=== PATIENT | female | born 1990 | race Two or more races ===

== ENCOUNTER 2023-06-17 00:02 | Inpatient (IN) | payer BC, OTHER ==
[2023-06-17] VITALS (25 sets, daily range): BP systolic 110–163; BP diastolic 62–104; PULSE 69–92; RESP 11–26; TEMP 98.2–98.7; O2SAT 94–99
[~2023-06-17] VITALS: Ht 170.2 cm; Wt 98.1 kg
[2023-06-17] MEDS ORDERED: LABETALOL HCL 5 MG/ML 4ML SYRINGE IV ONE (00:30)
[2023-06-17] MEDS ORDERED: ONDANSETRON HCL 4 MG/2 ML VIAL IV ONE ×2 (00:30→03:45)
[2023-06-17] MEDS ORDERED: MORPHINE SULFATE 4 MG/ML SYR/VIAL IV ONE ×2 (00:45→02:15)
[2023-06-17 00:54] LABS: Basophils # (auto) 0 10 ^3/uL (0-0.2); Basophils % (auto) 0.1 % (0.0-2.0); Eosinophils # (auto) 0 10 ^3/uL (0-0.8); Eosinophils % (auto) 0.2 % (0.0-7.0); Hematocrit 33.3 % (36.0-46.0); Hemoglobin 11.5 g/dL (12.2-16.2); Lymphocytes # (auto) 1.2 10 ^3/uL (0.4-5.4); Lymphocytes % (auto) 8.6 % (10.0-50.0); Mean Corpuscular Hemoglobin 31.2 pg (28.0-32.0); Mean Corpuscular Hgb Conc. 34.5 g/dL (32.0-36.0); Mean Corpuscular Volume 90.3 fL (80.0-100.0); Monocytes # (auto) 0.6 10 ^3/uL (0-1.3); Monocytes % (auto) 4.3 % (0.0-12.0); Neutrophils # (auto) 12.2 10 ^3/uL (1.6-8.6); Neutrophils % (auto) 86.8 % (37.0-80.0); Red Blood Cells 3.69 10^6/uL (4.0-5.20)
[2023-06-17] MEDS: MAGNESIUM SULFATE 1GM/100ML 100 ML IV SCH ×4 (00:58→04:45)
[2023-06-17] MEDS ORDERED: ACETAMINOPHEN IV 1000 MG/100ML (10MG/ML) IV STA (02:09)
[2023-06-17 02:16] LABS: Alanine Aminotransferase 22 U/L (7-40); Albumin 3.5 g/dL (3.2-4.8); Alkaline Phosphatase 129 U/L (46-116); Anion Gap 7 (5-15); Aspartate Aminotransferase 19 U/L (13-40); BUN/Creatinine Ratio 5.5 (10.0-20.0); Bilirubin, Total 0.4 mg/dL (0.2-1.0); Blood Urea Nitrogen 5 mg/dL (9-23); Calcium 8.8 mg/dL (8.7-10.4); Carbon Dioxide 24 mmol/L (20-30); Chloride 107 mmol/L (98-107); Glucose 115 mg/dL (74-106); Lipase 42 U/L (12-53); Potassium 4.5 mmol/L (3.5-5.1); Sodium 138 mmol/L (136-145); Total Protein 5.9 g/dL (5.7-8.2)
[2023-06-17] MEDS ORDERED: ACETAMINOPHEN IV 100 ML IV ONE (02:23)
[2023-06-17] MEDS ORDERED: MAGNESIUM SULFATE 1GM/100ML 100 ML IV SCH (04:30)
[2023-06-17] MEDS ORDERED: LORazepam 2MG/ML-1ML VIAL IV ONE (05:00)
[2023-06-17 05:35] LABS: Urine Amorphous Crystal FEW /hpf (None Seen); Urine Bacteria NONE SEEN /hpf (None Seen); Urine Blood 3+ /uL (Negative); Urine Clarity HAZY (Clear); Urine Color Colorless (Yellow); Urine Protein, UAD Negative (Negative); Urine Specific Gravity 1.009 (1.001-1.035); Urine Urobilinogen Normal (Negative); Urine WBC 4 /hpf (0 - 5)
[2023-06-17] MEDS ORDERED: HYDROmorphone HCL 2 MG/ML VL/or syr IV ONE (06:15)
[2023-06-17 07:20] LABS: Creatinine, Urine 19.97 mg/dL (30.0-125.0)
[2023-06-17 08:05] LABS: Protein, Urine 10.7 mg/dL (0.0-11.9)
[2023-06-17] MEDS ORDERED: DOCUSATE SOD 100 MG CAP PO PRN (09:15)
[2023-06-17] MEDS ORDERED: LORazepam 2MG/ML-1ML VIAL IV PRN (09:15)
[2023-06-17] MEDS ORDERED: ONDANSETRON HCL 4 MG/2 ML VIAL IV PRN (09:15)
[2023-06-17] MEDS ORDERED: HYDROmorphone HCL 2 MG/ML VL/or syr IV PRN (09:15)
[2023-06-17] MEDS: MAGNESIUM SULFATE 40MG/ML 1,000 ML IV SCH (09:31)
[2023-06-17] MEDS ORDERED: LABETALOL HCL 200 MG TAB PO ONE ×2 (10:00→10:30)
[2023-06-17] MEDS: SODIUM CHLORIDE 0.9% 1,000 ML IV SCH ×2 (10:29→15:58)
[2023-06-17] MEDS: levoFLOXacin 500MG 100 ML IV SCH (10:30)
[2023-06-17] MEDS: LABETALOL HCL 200 MG TAB PO SCH ×2 (14:28→21:39)
[2023-06-17] MEDS ORDERED: LABE200T7 PO (15:02)
[2023-06-17 18:41] LABS: INR 0.99 (0.9-1.15); Prothrombin Time 10.4 sec (9.3-11.8)
[2023-06-17] MEDS ORDERED: hydrALAZINE HCL 20 MG/ML VL IV PRN (18:45)
[2023-06-18] VITALS (30 sets, daily range): BP systolic 108–162; BP diastolic 66–104; PULSE 71–94; RESP 10–27; TEMP 97.9–98.7; O2SAT 92–97
[2023-06-18] MEDS: MAGNESIUM SULFATE 40MG/ML 1,000 ML IV SCH ×2 (01:31→17:33)
[2023-06-18] MEDS: SODIUM CHLORIDE 0.9% 1,000 ML IV SCH ×2 (01:55→08:31)
[2023-06-18 05:19] LABS: Basophils # (auto) 0 10 ^3/uL (0-0.2); Basophils % (auto) 0.2 % (0.0-2.0); Eosinophils # (auto) 0 10 ^3/uL (0-0.8); Eosinophils % (auto) 0.4 % (0.0-7.0); Hemoglobin 12.1 g/dL (12.2-16.2); Lymphocytes # (auto) 1.7 10 ^3/uL (0.4-5.4); Lymphocytes % (auto) 18.5 % (10.0-50.0); Mean Corpuscular Hgb Conc. 34.7 g/dL (32.0-36.0); Mean Corpuscular Volume 89.5 fL (80.0-100.0); Monocytes # (auto) 0.5 10 ^3/uL (0-1.3); Monocytes % (auto) 5.2 % (0.0-12.0); Neutrophils # (auto) 6.8 10 ^3/uL (1.6-8.6); Neutrophils % (auto) 75.7 % (37.0-80.0); Red Blood Cells 3.91 10^6/uL (4.0-5.20); Red Cell Distribution Width 13.1 % (11.8-14.3)
[2023-06-18 06:22] LABS: Alanine Aminotransferase 15 U/L (7-40); Albumin 3.2 g/dL (3.2-4.8); Alkaline Phosphatase 107 U/L (46-116); Anion Gap 6 (5-15); Aspartate Aminotransferase 11 U/L (13-40); BUN/Creatinine Ratio 7.9 (10.0-20.0); Bilirubin, Total 0.4 mg/dL (0.2-1.0); Blood Urea Nitrogen < 5 mg/dL (9-23); Calcium 7.9 mg/dL (8.7-10.4); Carbon Dioxide 25 mmol/L (20-30); Chloride 106 mmol/L (98-107); Glucose 102 mg/dL (74-106); Magnesium 3.3 mg/dL (1.6-2.6); Potassium 3.9 mmol/L (3.5-5.1); Sodium 137 mmol/L (136-145); Total Protein 5.4 g/dL (5.7-8.2)
[2023-06-18] MEDS: LABETALOL HCL 200 MG TAB PO SCH ×3 (06:30→21:50)
[2023-06-18] MEDS: levoFLOXacin 500MG 100 ML IV SCH (08:31)
[2023-06-18] MEDS ORDERED: NIFEdipine ER 30 MG TAB PO SCH (10:30)
[2023-06-18] MEDS: LACTATED RINGER'S 1,000 ML IV SCH (11:00)
[2023-06-18] MEDS ORDERED: methylPREDNISolone SOD SUCC 125 MG/2 ML VL IV ONE (11:15)
[2023-06-18] MEDS ORDERED: diphenhdrAMINE HCL 50 MG/1 ML VL IV ONE (11:15)
[2023-06-18 12:22] LABS: Protein, Urine 6.9 mg/dL (0.0-11.9)
[2023-06-18 12:25] LABS: Creatinine, Urine 13.62 mg/dL (30.0-125.0); Urine Protein/Creatinine Ratio 0.51
[2023-06-19] VITALS (17 sets, daily range): BP systolic 100–158; BP diastolic 65–99; PULSE 65–114; RESP 8–37; TEMP 97.9–98.6; O2SAT 89–98
[2023-06-19] MEDS ORDERED: levoFLOXacin 500MG 100 ML IV ONE (08:00)
[2023-06-19] MEDS ORDERED: BUPIVACAINE HCL 0.25% P/F 10 ML VIAL ONE (08:39)
[2023-06-19] MEDS ORDERED: LIDOCAINE W/ EPINEPHRINE 1% 20ML VIAL ONE (08:39)
[2023-06-19] MEDS ORDERED: SUCCINYLCHOLINE CHLORIDE 20 MG/ML 10ML VIAL IV ONE (08:49)
[2023-06-19] MEDS ORDERED: fentaNYL CITRATE 100 MCG/2 ML VL ONE (08:50)
[2023-06-19] MEDS ORDERED: PROPOFOL 10 MG/ML 20 ML IV ONE (08:51)
[2023-06-19] MEDS ORDERED: ROCURONIUM 10MG/ML 10ML VIAL IV ONE (09:13)
[2023-06-19] MEDS ORDERED: ONDANSETRON HCL 4 MG/2 ML VIAL ONE (09:14)
[2023-06-19] MEDS ORDERED: DexAMETHasone SOD PHOS 10MG/1ML VIAL INJ ONE (09:15)
[2023-06-19] MEDS ORDERED: MEPERIDINE HCL (50 MG/ML) 1 ML VIAL ONE ×2 (09:18→10:06)
[2023-06-19] MEDS ORDERED: ePHEDrine SULFATE 50 MG/ML AMP ONE (09:32)
[2023-06-19] MEDS: LABETALOL HCL 200 MG TAB PO SCH ×2 (10:00→23:03)
[2023-06-19] MEDS ORDERED: SUGAMMADEX 200mg/2ml Vial (100MG/ML) IV ONE (10:00)
[2023-06-19] MEDS: levoFLOXacin 500MG 100 ML IV SCH (10:00)
[2023-06-19] MEDS ORDERED: MEPERIDINE HCL (25 MG/ML) 1ML VIAL IV PRN (10:30)
[2023-06-19] MEDS ORDERED: ONDANSETRON HCL 4 MG/2 ML VIAL IV PRN (10:30)
[2023-06-19] MEDS: HYDROmorphone HCL 2 MG/ML VL/or syr IV PRN ×2 (10:56→11:07)
[2023-06-19] MEDS ORDERED: MORPHINE SULFATE INJ 2 MG/ml SYRG IV PRN (13:30)
[2023-06-19] MEDS ORDERED: HYDROcodone-ACET 5/325MG TAB PO PRN (15:45)
[2023-06-19] MEDS ORDERED: HYDROmorphone HCL 2 MG/ML VL/or syr IV PRN (15:45)
[2023-06-19] MEDS ORDERED: LACTATED RINGER'S 1,000 ML IV ONE (19:15)
[2023-06-19] MEDS ORDERED: HYDROmorphone HCL 2 MG/ML VL/or syr IV ONE (19:15)
[2023-06-19 19:55] LABS: Basophils # (auto) 0 10 ^3/uL (0-0.2); Basophils % (auto) 0.2 % (0.0-2.0); Eosinophils # (auto) 0 10 ^3/uL (0-0.8); Hematocrit 34.1 % (36.0-46.0); Hemoglobin 11.4 g/dL (12.2-16.2); Lymphocytes # (auto) 1.3 10 ^3/uL (0.4-5.4); Lymphocytes % (auto) 11.4 % (10.0-50.0); Mean Corpuscular Hemoglobin 30.2 pg (28.0-32.0); Mean Corpuscular Hgb Conc. 33.5 g/dL (32.0-36.0); Mean Corpuscular Volume 90.2 fL (80.0-100.0); Monocytes # (auto) 0.4 10 ^3/uL (0-1.3); Monocytes % (auto) 3.1 % (0.0-12.0); Neutrophils # (auto) 10.1 10 ^3/uL (1.6-8.6); Neutrophils % (auto) 85.3 % (37.0-80.0); Red Blood Cells 3.79 10^6/uL (4.0-5.20); White Blood Cell 11.8 10^3/uL (4.4-10.8)
[2023-06-19 20:10] LABS: Alanine Aminotransferase 32 U/L (7-40); Alkaline Phosphatase 102 U/L (46-116); Anion Gap 10 (5-15); Aspartate Aminotransferase 41 U/L (13-40); BUN/Creatinine Ratio 10.5 (10.0-20.0); Blood Urea Nitrogen 8 mg/dL (9-23); Calcium 8.4 mg/dL (8.7-10.4); Carbon Dioxide 21 mmol/L (20-30); Chloride 105 mmol/L (98-107); Glucose 128 mg/dL (74-106); Potassium 3.9 mmol/L (3.5-5.1); Sodium 136 mmol/L (136-145)
[2023-06-19 20:11] LABS: Albumin 3.4 g/dL (3.2-4.8); Total Protein 5.6 g/dL (5.7-8.2)
[2023-06-19 20:35] LABS: Bilirubin, Total 0.3 mg/dL (0.2-1.0)
[2023-06-20] VITALS (12 sets, daily range): BP systolic 149–161; BP diastolic 94–107; PULSE 68–102; RESP 10–28; TEMP 98.1–98.6; O2SAT 93–98
[2023-06-20] MEDS: LACTATED RINGER'S 1,000 ML IV SCH ×2 (01:25→03:00)
[2023-06-20 05:14] LABS: Basophils # (auto) 0 10 ^3/uL (0-0.2); Basophils % (auto) 0.2 % (0.0-2.0); Eosinophils # (auto) 0 10 ^3/uL (0-0.8); Eosinophils % (auto) 0.4 % (0.0-7.0); Hematocrit 33.5 % (36.0-46.0); Hemoglobin 11.5 g/dL (12.2-16.2); Lymphocytes # (auto) 2.5 10 ^3/uL (0.4-5.4); Lymphocytes % (auto) 25.6 % (10.0-50.0); Mean Corpuscular Hgb Conc. 34.2 g/dL (32.0-36.0); Mean Corpuscular Volume 90.6 fL (80.0-100.0); Monocytes # (auto) 0.6 10 ^3/uL (0-1.3); Monocytes % (auto) 5.9 % (0.0-12.0); Neutrophils # (auto) 6.7 10 ^3/uL (1.6-8.6); Neutrophils % (auto) 67.9 % (37.0-80.0); Nucleated Red Blood Cells % 0.1 %; Red Cell Distribution Width 13.4 % (11.8-14.3); White Blood Cell 9.8 10^3/uL (4.4-10.8)
[2023-06-20 06:22] LABS: Anion Gap 7 (5-15); BUN/Creatinine Ratio 11.5 (10.0-20.0); Bilirubin, Total 0.3 mg/dL (0.2-1.0); Blood Urea Nitrogen 7 mg/dL (9-23); Calcium 8.4 mg/dL (8.7-10.4); Carbon Dioxide 26 mmol/L (20-30); Chloride 104 mmol/L (98-107); Glucose 81 mg/dL (74-106); Potassium 3.8 mmol/L (3.5-5.1); Sodium 137 mmol/L (136-145)
[2023-06-20] MEDS: LABETALOL HCL 200 MG TAB PO SCH (09:41)
[2023-06-20] MEDS: levoFLOXacin 500MG 100 ML IV SCH (09:41)
[2023-06-20] MEDS ORDERED: CEPH500C PO (17:01)
== END 2023-06-20 18:08 | disposition home or self-care (01) | DRG 769 ==
LOC: ER 00:02 → TELE 09:25 → ICU CENTRL 15:05 → DOU IN ICU 15:20
PROVIDERS: ADMIT Nurse Practitioner Family; ATTEND Nurse Practitioner Acute Care
PROC: 0FT44ZZ Resection of Gallbladder, Percutaneous Endoscopic Approach (ICD-10-PCS; principal; 2023-06-19 09:05)
DX: O99.63 Diseases of the digestive system complicating the puerperium (principal); K80.10 Calculus of gallbladder with chronic cholecystitis without obstruction; K82.A1 Gangrene of gallbladder in cholecystitis; O14.95 Unspecified pre-eclampsia, complicating the puerperium; F41.9 Anxiety disorder, unspecified; O90.81 Anemia of the puerperium; O99.345 Other mental disorders complicating the puerperium; Z88.0 Allergy status to penicillin; Z98.51 Tubal ligation status; E66.9 Obesity, unspecified
CPT/HCPCS: 36415; 71045; 76705; 80048; 80053; 81001; 82247; 82570; 83690; 83735; 84156; 84550; 84702; 85025; 85379; 85610; 85730; 86850; 86900; 86901; 87075; 87081; 87205; 93005; 93970; 96365; 96375; 99291; G0378; J0131; J0330; J1100; J1956; J2405; J2704; J3490